=== PATIENT | male | born 2000 | race Caucasian/White ===

== ENCOUNTER 2025-01-26 18:08 | Emergency (ER) | payer OTHER, SELFPAY ==
[2025-01-26 18:10] VITALS: BP 139/71
--- NOTE | 2025-01-26 18:53 | ED.GENMED ---
History of Present Illness
General
Chief Complaint: Skin Surface Trauma
Source: patient
Time Seen by Provider: 01/26/25 18:29
History of Present Illness
History of Present Illness:
24-year-old male presenting the ER for evaluation after an accidental trip and fall causing him to fall down approximately 5 stairs, striking the right side of his frontal scalp on the wall, questionable LOC, has laceration through the right
eyebrow, small abrasion to the right knee, no other injury sustained. Patient does endorse a mild headache but no vomiting or visual changes. Denies use of anticoagulants. No other concerns. Tetanus is up-to-date.
Past History
Past History
ED Past Medical History: None
ED Past Surgical History: None
Social History
Tobacco: Non-smoker
Alcohol: None
Drug: None
Personal: Single
Living: with family
Review of Systems
Review of Systems
All Other Systems: ROS reviewed and negative except as documented in HPI and ROS
Phy Exam
Physical Exam
Physical Exam:
GENERAL: Alert , in no apparent distress
EYE: conjunctiva clear, pupils 5 mm bilaterally, EOMI
Head: 2 cm laceration through the right eyebrow, superficial, no active bleeding
NECK: Supple,
ENT: mmm.
LUNGS: no acute respiratory distress
NEUROLOGICAL: Alert and oriented, ambulates with steady gait
SKIN: Warm and dry, skin intact.
MUSCULOSKELETAL: well perfused.
PSYCH: Normal and appropriate interaction.
Scores
Heart Failure Risk
Heart Failure Risk Score: Not Applicable
Heart Score for Chest Pain Patients
STEMI patient?: Not applicable
Withdrawal Assessment of Alcohol
Withdrawal Assessment Completed?: Not applicable
Course
Orders/Labs/Results
Orders:
Orders
01/26/25 18:31
CT Head W/o Iv Contrast Urgent
Comment:
Reason For Exam: Head Injury, +LOC
Vital Signs
Initial and Last Documented VS:
Initial Vital Signs
Temp Pulse Resp BP Pulse Ox
98 F 74 16 139/71 100
01/26/25 18:10 01/26/25 18:10 01/26/25 18:10 01/26/25 18:10 01/26/25 18:10
Last Documented Vital Signs
Temp Pulse Resp BP Pulse Ox
98 F 74 16 139/71 100
01/26/25 18:10 01/26/25 18:10 01/26/25 18:10 01/26/25 18:10 01/26/25 18:10
Procedures
Laceration Closure
Right Eye brow:
Status of Wound: clean
Size of Wound in cm: 2
Description of Wound Edges: sharp
Preparation: cleaned with saline
Anesthesia: 1% Lidocaine with epi
Revision/Debridement: routine- no revision
Skin Closure Material: 6-0 prolene
Number of sutures: 8
MDM/Problems Addressed
Differential Diagnosis Includes:
Concussion, simple laceration, intracranial bleeding
MDM/Problems Addressed:
24-year-old male presenting to the ER for evaluation following an accidental fall sustaining superficial laceration to the right eyebrow. Laceration repaired as above without difficulty. Due to the questionable LOC CT of the head was ordered.
Suspect concussion. Anticipate discharge home with outpatient follow-up.
*Radiology
Radiology exam reviewed: radiology read reviewed
*Critical Care Note
Total Time (30-74mins, 75-104mins- exclusive of procedures): Not Applicable
Patient Management
Escalation/DeEscalation of care consider admission/obs:
CT of the head is negative for any acute intracranial pathology. Patient stable for discharge home. Aware of return precautions.
ED Attending Note
-
Portions of this chart may have been created with voice recognition software.� Occasional wrong word or��sound alike� substitutions may have occurred due to the inherent limitations of voice recognition software.
Discharge Plan
Departure
Patient Disposition: Home (Routine Discharge)
Date of Disposition: 01/26/25
Time of Disposition: 20:03
Patient with high blood pressure during this ER visit?: No
Discharge Problem:
Fall down stairs, Laceration of eyebrow, right, Concussion
Instructions: Laceration Repair With Stitches (DC), Concussion in adults - ED discharge instructions
Prescriptions:
No Action
escitalopram oxalate 10 MG tablet
10 mg PO DAILY
Referrals:
Chirag Fajardo MD [Family Provider]
Activity Restrictions/Additional Instructions:
Suture removal in 5-7 days
Interventions
Interventions:
*Risk Screen - Suicide Last Done: 01/26/25 18:11
*Neglect/Abuse Screening Last Done: 01/26/25 18:11
*Nursing Disposition Last Done: 01/26/25 20:07
ED-Skin Assessment Last Done: 01/26/25 18:52
Discharge Date and Time
Discharge Date/Time: 01/26/25 20:08
Print Language: ANGUILLAN
== END 2025-01-26 20:08 | disposition home or self-care (01) ==
LOC: EMR 18:08
PROVIDERS: EMERGENCY PHYSICIAN Emergency Medicine; FAMILY PHYSICIAN Family Medicine
DX: S06.0XAA Concussion with loss of consciousness status unknown, initial encounter (principal); S01.111A Laceration without foreign body of right eyelid and periocular area, initial encounter; S80.211A Abrasion, right knee, initial encounter; W10.9XXA Fall (on) (from) unspecified stairs and steps, initial encounter
CPT/HCPCS: 12011; 99284; 70450